=== PATIENT | female | born 1995 | race African-American/Black ===

== ENCOUNTER 2016-11-02 12:04 | Emergency (ER) | payer MEDICAID, OTHER ==
[~2016-11-02] VITALS: Ht 152.4 cm; Wt 77.1 kg
[2016-11-02 14:44] VITALS: BP 110/78
== END 2016-11-02 15:43 | disposition home or self-care (01) ==
LOC: ER 12:13
DX: J03.90 Acute tonsillitis, unspecified (principal)

== ENCOUNTER 2017-06-06 05:48 | Emergency (ER) | payer MEDICAID ==
[~2017-06-06] VITALS: Ht 152.4 cm; Wt 77.1 kg
[2017-06-06 07:02] LABS: Basophils # (auto) 0.1 uL; Basophils % (auto) 0.8 % (0.0-2.0); Eosinophils # (auto) 0.1 uL; Eosinophils % (auto) 1.4 % (0.0-7.0); Hematocrit 39.6 % (36.0-46.0); Hemoglobin 13.2 g/dL (12.2-16.2); Lymphocytes # (auto) 3.1 uL; Lymphocytes % (auto) 29.2 % (10.0-50.0); Mean Corpuscular Hemoglobin 29.5 pg (28.0-32.0); Mean Corpuscular Hgb Conc. 33.3 g/dL (32.0-36.0); Mean Corpuscular Volume 88.7 fL (80.0-100.0); Mean Platelet Volume 7.5 fL (6.9-10.8); Monocytes # (auto) 0.5 uL; Monocytes % (auto) 4.9 % (0.0-12.0); Neutrophils # (auto) 6.7 uL; Neutrophils % (auto) 63.7 % (37.0-80.0); Nucleated Red Blood Cells % 0.1 %; Platelet Count (auto) 309 10^3/uL (140-450); Red Cell Distribution Width 14.2 % (11.8-14.3); White Blood Cell 10.6 10^3/uL (4.4-10.8)
[2017-06-06 07:09] LABS: Albumin 4.1 g/dL (3.4-5.0); Anion Gap 9 (5-15); Aspartate Aminotransferase 15 U/L (15-37); BUN/Creatinine Ratio 8.5; Blood Urea Nitrogen 7 mg/dL (7-18); Calcium 8.9 mg/dL (8.5-10.1); Carbon Dioxide 25 mmol/L (21-32); Chloride 107 mmol/L (98-107); GFR African American 112 mL/min; GFR Non-African American 93 mL/min; Glucose 92 mg/dL (74-106); Magnesium 2.3 mg/dL (1.6-2.6); Potassium 3.5 mmol/L (3.5-5.1); Sodium 141 mmol/L (136-145)
[2017-06-06 07:12] LABS: Alkaline Phosphatase 76 U/L (45-117); Bilirubin, Total 0.5 mg/dL (0.2-1.0); Total Protein 6.7 g/dL (6.4-8.2)
[2017-06-06] MEDS ORDERED: SODIUM CHLORIDE 0.9% 1,000 ML IV ONE (07:24)
[2017-06-06] MEDS ORDERED: PANTOPRAZOLE 40 MG TAB PO ONE (07:30)
[2017-06-06 07:38] LABS: Acetaminophen < 2.0 ug/mL (10-30); Salicylate < 1.7 mg/dL (2.8-20.0)
[2017-06-06 08:19] LABS: Urine Bilirubin Negative (Negative); Urine Blood Negative /uL (Negative); Urine Color Yellow (Yellow); Urine Glucose Normal (Normal); Urine Ketone Negative (Negative); Urine Nitrite Negative (Negative); Urine RBC 1 /hpf (0 - 4); Urine Squamous Epithelial Cell FEW /hpf (<5); Urine Urobilinogen Normal (Negative)
[2017-06-06] MEDS ORDERED: cefTRIAXone 1GM/50ML D5W 50 ML IV ONE (10:15)
[2017-06-06] MEDS ORDERED: LORazepam 0.5 MG TAB ONE (14:52)
[2017-06-06] MEDS ORDERED: LORazepam 0.5 MG TAB PO PRN (15:00)
[2017-06-07 17:11] VITALS: BP 103/54
== END 2017-06-07 18:26 | disposition short-term general hospital (02) ==
LOC: EDBD 05:48 → ER 05:53
DX: T39.392A Poisoning by other nonsteroidal anti-inflammatory drugs [NSAID], intentional self-harm, initial encounter (principal); N39.0 Urinary tract infection, site not specified; F32.9 Major depressive disorder, single episode, unspecified; F41.9 Anxiety disorder, unspecified; Y93.89 Activity, other specified; Y99.8 Other external cause status; Y92.89 Other specified places as the place of occurrence of the external cause
CPT/HCPCS: 36415; 71020; 80053; 80307; 80320; 80329; 81001; 83735; 84443; 84702; 85025; 93005; 96361; 96365; 99285; J0696; J7030

== ENCOUNTER 2018-06-16 02:41 | Emergency (ER) | payer MEDICAID ==
[~2018-06-16] VITALS: Ht 152.4 cm; Wt 86.2 kg
[2018-06-16 03:53] VITALS: BP 113/66
[2018-06-16] MEDS ORDERED: PHENAZOPYRIDINE HCL 100 MG TAB PO ONE (04:30)
[2018-06-16] MEDS ORDERED: cefTRIAXone SOD 1,000 MG VL IM ONE (04:30)
[2018-06-16 04:32] LABS: Urine Bacteria FEW /hpf (None Seen); Urine Blood TRACE /uL (Negative); Urine Specific Gravity 1.029 (1.001-1.035); Urine WBC 5 /hpf (0 - 5)
== END 2018-06-16 04:51 | disposition home or self-care (01) ==
LOC: ER 02:46
DX: N39.0 Urinary tract infection, site not specified (principal)
CPT/HCPCS: 81001; 96372; 99283; J0696